=== PATIENT | female | born 1985 | race Caucasian/White ===

== ENCOUNTER 2017-04-27 17:06 | Emergency (ER) | payer OTHER ==
[2017-04-27 19:27] VITALS: BP 139/74
--- NOTE | 2017-04-27 19:58 | UC ---
Throat Pain/Nasal Krish HPI - HPI Summary HPI Summary: 32 female presents to with complaints of fever, sinus pain, nasal congestion , nausea and headache that began 3 days ago. Not currently nauseous. Patient tried taking OTC sinus medication without much relief. Fever was 101F yesterday. No other complaints. No other medications or PMHx. Denies sore throat, cough and ear pain. No chest pain or difficulty breathing. - History of Current Complaint Chief Complaint: UCGeneralIllness Stated Complaint: SINUS Time Seen by Provider: 04/27/17 19:35 Hx Obtained From: Patient Hx Last Menstrual Period: 04/19/17 Onset/Duration: Sudden Onset, Lasting Days, Still Present, Worse Since Severity: Moderate Pain Intensity: 2 Pain Scale Used: 0-10 Numeric Cough: Sputum Appears Associated Signs & Symptoms: Positive: Sinus Discomfort, Nasal Discharge - Allergies/Home Medications Allergies/Adverse Reactions: Allergies Allergy/AdvReac Type Severity Reaction Status Date / Time Amoxicillin Allergy Rash Verified 04/27/17 19:27 Penicillins Allergy Rash Verified 04/27/17 19:27 Prochlorperazine Allergy Agitation Verified 04/27/17 19:27 [From Compazine] PMH/Surg Hx/FS Hx/Imm Hx - Additional Past Medical History Additional PMH: Denies DM, HTN and asthma Gets sinusitis often - Surgical History Surgical History: Yes Surgery Procedure, Year, and Place: tonsils 1995, cholecystectomy 02/2012, right parotidectomy 06/2014, both tubes removed,. 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 - Social History Alcohol Use: None Substance Use Type: None Smoking Status (MU): Former Smoker Review of Systems Constitutional: Fever, Chills, Fatigue Skin: Negative Eyes: Negative ENT: Nasal Discharge, Sinus Congestion, Sinus Pain/Tenderness Respiratory: Negative Cardiovascular: Negative Gastrointestinal: Nausea Neurological: Headache All Other Systems Reviewed And Are Negative: Yes Physical Exam Triage Information Reviewed: Yes Appearance: Well-Appearing, No Pain Distress, Well-Nourished Vital Signs: Initial Vital Signs Temp 98.2 F 04/27/17 19:24 Pulse 112 04/27/17 19:24 Resp 18 04/27/17 19:24 BP 139/74 04/27/17 19:24 Pulse Ox 98 04/27/17 19:24 Vital Signs Reviewed: Yes Eyes: Positive: Conjunctiva Clear ENT: Positive: Normal ENT inspection, Hearing grossly normal, Pharynx normal, TMs normal. Negative: Tonsillar swelling, Tonsillar exudate, Trismus, Muffled/ hoarse voice Dental: Positive: Percussion Tenderness @ - maxillary b/l, Cervical Lymphadenopathy Neck: Positive: Supple, Nontender Respiratory: Positive: Chest non-tender, Lungs clear, Normal breath sounds, No respiratory distress, No accessory muscle use Cardiovascular: Positive: RRR, No Murmur, Pulses Normal Abdomen Description: Positive: Nontender, Soft Bowel Sounds: Positive: Present Musculoskeletal: Positive: Strength Intact, ROM Intact Neurological: Positive: Alert Skin Exam: Normal Throat Pain/Nasal Course/Dx - Course Course Of Treatment: appears to be suffering from sinusitis. will treat with flonase and antibiotic. fluids, rest, ibuprofen. saline rinses, hot showers and warm compresses. sleep with extra pillow. follow up. aware of worsening signs and symptoms to watch out for. - Differential Dx/Diagnosis Differential Diagnosis/HQI/PQRI: Pharyngitis, Sinusitis, Tonsillitis, URI Provider Diagnoses: acute sinusitis Discharge - Discharge Plan Condition: Stable Disposition: HOME Prescriptions: Cefdinir [Cefdinir 300 MG CAP] 300 mg PO BID #20 cap Fluticasone NASAL SPRAY 50MCG* [Flonase NASAL SPRAY 50MCG*] 2 spray BOTH NARES DAILY #1 btl Loratadine [Claritin 10 MG CAP] 10 mg PO DAILY #10 cap Patient Education Materials: Sinusitis (ED), Warm Compress or Soak (ED) Referrals: Lori Starr MD [Primary Care Provider] - Additional Instructions: Take antihistamine and start using flonase. Take prescribed antibiotic until entire dose is finished. Probiotic or maltese yogurt in between doses. Fluids, rest. Warm compresses over cheeks. Saline rinses, hot showers. sleep with extra pillow. Follow up pcp. Return if symptoms worsen or do not improve.
== END 2017-04-27 20:18 | disposition home or self-care (01) ==
LOC: UCCORT 17:06
DX: J01.90 Acute sinusitis, unspecified (principal); Z90.49 Acquired absence of other specified parts of digestive tract; Z90.3 Acquired absence of stomach [part of]; Z88.0 Allergy status to penicillin; Z87.891 Personal history of nicotine dependence
CPT/HCPCS: 99212; G0463

== ENCOUNTER 2017-09-04 10:59 | Emergency (ER) | payer OTHER ==
[2017-09-04 13:22] VITALS: BP 123/69
--- NOTE | 2017-09-04 13:57 | UC ---
Ear Complaint HPI - HPI Summary HPI Summary: Rony ear congestion and pressure for a day or so. She has had URi symptoms along with her family. Non fever or actual pain. - History of Current Complaint Chief Complaint: UCEar Stated Complaint: ear ache Time Seen by Provider: 09/04/17 12:58 Hx Obtained From: Patient Hx Last Menstrual Period: last month Onset/Duration: Gradual Onset, Lasting Days Severity Initially: Mild Severity Currently: Mild Pain Intensity: 0 Aggravating Factors: Nothing Alleviating Factors: Nothing Associated Signs/Symptoms: Positive: URI Symptoms. Negative: Discharge, Hearing Loss, Foreign Body Sensation, Trauma to Ear, Swelling @ - Allergies/Home Medications Allergies/Adverse Reactions: Allergies Allergy/AdvReac Type Severity Reaction Status Date / Time Amoxicillin Allergy Rash Verified 09/04/17 13:22 Penicillins Allergy Rash Verified 09/04/17 13:22 Prochlorperazine Allergy Agitation Verified 09/04/17 13:22 [From Compazine] Home Medications: Home Medications NK [No Home Medications Reported] 09/04/17 [History Confirmed 09/04/17] PMH/Surg Hx/FS Hx/Imm Hx Previously Healthy: No - Surgical History Surgical History: Yes Surgery Procedure, Year, and Place: tonsils 1995, cholecystectomy 02/2012, right parotidectomy 06/2014, both tubes removed,. 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 - Social History Lives: With Family Alcohol Use: None Substance Use Type: None Smoking Status (MU): Former Smoker Review of Systems ENT: Ear Ache All Other Systems Reviewed And Are Negative: Yes Physical Exam Triage Information Reviewed: Yes Appearance: Well-Appearing, No Pain Distress, Obese Vital Signs: Initial Vital Signs Temp 99.7 F 09/04/17 13:18 Pulse 68 09/04/17 13:18 Resp 18 09/04/17 13:18 BP 123/69 09/04/17 13:18 Pulse Ox 100 09/04/17 13:18 Vital Signs Reviewed: Yes Eye Exam: Normal Eyes: Positive: Conjunctiva Clear ENT: Positive: Normal ENT inspection, Pharynx normal, Nasal congestion, TM bulging, Uvula midline. Negative: Pharyngeal erythema, TM dull, TM red, Tonsillar swelling, Tonsillar exudate, Trismus, Muffled voice, Sinus tenderness Neck: Positive: Supple, Nontender, No Lymphadenopathy Respiratory: Positive: Lungs clear, Normal breath sounds, No respiratory distress, No accessory muscle use. Negative: Respiratory distress, Decreased breath sounds, Accessory muscle use, Crackles, Rhonchi, Stridor, Wheezing Cardiovascular: Positive: RRR, No Murmur, Pulses Normal Abdomen Description: Positive: Soft. Negative: CVA Tenderness (R), CVA Tenderness (L), Distended, Guarding Musculoskeletal: Positive: ROM Intact, No Edema Neurological: Positive: Alert, Muscle Tone Normal Psychological: Positive: Age Appropriate Behavior Skin: Negative: rashes Ear Complaint Course/Dx - Course Course Of Treatment: decongestants. - Differential Dx/Diagnosis Provider Diagnoses: URI. Rnoy ear pressure without infection. Discharge - Discharge Plan Condition: Good Disposition: HOME Patient Education Materials: Upper Respiratory Infection (ED) Referrals: Lori Starr MD [Primary Care Provider] - Additional Instructions: OTC decongestants.
== END 2017-09-04 13:57 | disposition home or self-care (01) ==
LOC: UCCORT 10:59
DX: J06.9 Acute upper respiratory infection, unspecified (principal); H93.8X3 Other specified disorders of ear, bilateral; E66.9 Obesity, unspecified; Z90.49 Acquired absence of other specified parts of digestive tract; Z98.84 Bariatric surgery status; Z88.1 Allergy status to other antibiotic agents; Z88.0 Allergy status to penicillin; Z87.891 Personal history of nicotine dependence
CPT/HCPCS: 99211; G0463

== ENCOUNTER 2017-11-11 13:50 | Emergency (ER) | payer OTHER ==
[2017-11-11 15:29] VITALS: BP 125/72
--- NOTE | 2017-11-11 15:56 | UC ---
Ear Complaint HPI - HPI Summary HPI Summary: Pt presents with sore throat and left ear pain that began 4 days ago. Her children have been sick with similar symptoms. She has not been taking anything OTC for her symptoms. Denies fever, chills, SOB, chest pain, abdominal pain, n/v /d/c. - History of Current Complaint Chief Complaint: UCRespiratory Stated Complaint: EAR PAIN,SORE THROAT Time Seen by Provider: 11/11/17 15:18 Hx Obtained From: Patient Hx Last Menstrual Period: salpengectomy Onset/Duration: Gradual Onset Severity Initially: Mild Severity Currently: Mild Pain Intensity: 3 Pain Scale Used: 0-10 Numeric - Allergies/Home Medications Allergies/Adverse Reactions: Allergies Allergy/AdvReac Type Severity Reaction Status Date / Time amoxicillin Allergy Rash Verified 11/11/17 15:29 Penicillins Allergy Rash Verified 11/11/17 15:29 prochlorperazine Allergy Agitation Verified 11/11/17 15:29 [From Compazine] Home Medications: Home Medications Topiramate [Topamax] 100 mg PO BID 11/11/17 [History Confirmed 11/11/17] PMH/Surg Hx/FS Hx/Imm Hx Previously Healthy: Yes - Surgical History Surgical History: Yes Surgery Procedure, Year, and Place: tonsils 1995, cholecystectomy 02/2012, right parotidectomy 06/2014, both tubes removed,. 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 - Social History Occupation: Employed Full-time Lives: With Family Alcohol Use: None Substance Use Type: None Smoking Status (MU): Former Smoker Review of Systems Constitutional: Negative Skin: Negative Eyes: Negative ENT: Sore Throat, Ear Ache Respiratory: Negative Cardiovascular: Negative Gastrointestinal: Negative Neurovascular: Negative Musculoskeletal: Negative Neurological: Negative Psychological: Negative All Other Systems Reviewed And Are Negative: Yes Physical Exam - Summary Physical Exam Summary: GENERAL: NAD. WDWN. No pain distress. SKIN: No rashes, sores, ulcers, masses, lesions. HEENT: Head: AT/NC Eyes: Conjunctiva clear without inflammation or discharge. Ears: Hearing grossly normal. Left TM with mild erythema and bulging. No discharge or edema. Nose: Nasal mucosa pink and moist. NTTP maxillary and frontal sinus. Throat: Posterior oropharynx without exudates, erythema, or tonsillar enlargement. Uvula midline. NECK: Supple. Nontender. No lymphadenopathy. CHEST: CTAB. No r/r/w. No accessory muscle use. Breathing comfortably and in no distress. CV: RRR. Without m/r/g. Pulses intact. Brisk cap refill. NEURO: Alert. CN II-XII grossly intact. PSYCH: Age appropriate behavior. Triage Information Reviewed: Yes Vital Signs: Initial Vital Signs Temp 98.6 F 11/11/17 15:26 Pulse 81 11/11/17 15:26 Resp 18 11/11/17 15:26 BP 125/72 11/11/17 15:26 Pulse Ox 99 11/11/17 15:26 Ear Complaint Course/Dx - Course Course Of Treatment: Left otitis media - Differential Dx/Diagnosis Provider Diagnoses: Left otitis media Discharge - Sign-Out/Discharge Documenting (check all that apply): Discharge - Discharge Plan Condition: Stable Disposition: HOME Prescriptions: Azithromycin TAB* [Zithromax TAB (Z-ELIZABETH) 250 mg #6 tabs] 2 tab PO .TODAY, THEN 1 DAILY #1 elizabeth Patient Education Materials: Ear Infection (ED) Referrals: Lori Starr MD [Primary Care Provider] - Additional Instructions: If you develop a fever, shortness of breath, chest pain, new or worsening symptoms - please call your PCP or go to the ED. - Billing Disposition and Condition Condition: STABLE Disposition: HOME
== END 2017-11-11 16:10 | disposition home or self-care (01) ==
LOC: UCCORT 13:50
DX: H66.92 Otitis media, unspecified, left ear (principal); Z88.0 Allergy status to penicillin; Z88.8 Allergy status to other drugs, medicaments and biological substances; Z87.891 Personal history of nicotine dependence
CPT/HCPCS: 99212; G0463

== ENCOUNTER 2017-11-16 18:31 | Emergency (ER) | payer OTHER ==
[2017-11-16 19:46] VITALS: BP 133/69
--- NOTE | 2017-11-16 20:27 | UC ---
Throat Pain/Nasal Krish HPI - HPI Summary HPI Summary: Pt here with progressive left ear pain and left sinus pain. pt was treated with z pack for left OM with little improvement. No fever, chills. No rash. mild frontal CESAR. no nausea, vomitig. Mild sore throat. OTC meds pt's medications reviewed this visit - History of Current Complaint Chief Complaint: UCEar Stated Complaint: LEFT EAR PAIN, RESPIRATORY Time Seen by Provider: 11/16/17 20:14 Hx Obtained From: Patient, Medical Records Hx Last Menstrual Period: 10/23/ ?: No Onset/Duration: Gradual Onset, Lasting Days Pain Intensity: 8 - Allergies/Home Medications Allergies/Adverse Reactions: Allergies Allergy/AdvReac Type Severity Reaction Status Date / Time amoxicillin Allergy Rash Verified 11/16/17 19:46 Penicillins Allergy Rash Verified 11/16/17 19:46 prochlorperazine Allergy Agitation Verified 11/16/17 19:46 [From Compazine] PMH/Surg Hx/FS Hx/Imm Hx Previously Healthy: Yes - Surgical History Surgical History: Yes Surgery Procedure, Year, and Place: tonsils 1995, cholecystectomy 02/2012, right parotidectomy 06/2014, both tubes removed,. 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 - Social History Occupation: Employed Full-time Lives: With Family Alcohol Use: None Substance Use Type: None Smoking Status (MU): Former Smoker Review of Systems Constitutional: Negative Eyes: Negative ENT: Sore Throat, Ear Ache, Sinus Congestion, Sinus Pain/Tenderness All Other Systems Reviewed And Are Negative: Yes Physical Exam Triage Information Reviewed: Yes Appearance: Well-Appearing, No Pain Distress, Well-Nourished Vital Signs: Initial Vital Signs Temp 98.5 F 11/16/17 19:41 Pulse 78 11/16/17 19:41 Resp 18 11/16/17 19:41 BP 133/69 11/16/17 19:41 Pulse Ox 100 11/16/17 19:41 Vital Signs Reviewed: Yes Eye Exam: Normal Eyes: Positive: Conjunctiva Clear ENT Exam: Normal ENT: Positive: Normal ENT inspection, Hearing grossly normal, Nasal congestion, Sinus tenderness, Other - left TM ++ fluid, retracte turbinate inflammed + TTP left max sinus + pnd uvula midline. Negative: Tonsillar swelling, Tonsillar exudate, Uvula midline Dental Exam: Normal Neck exam: Normal Neck: Positive: Supple, Nontender, No Lymphadenopathy Respiratory Exam: Normal Respiratory: Positive: Chest non-tender, Lungs clear, Normal breath sounds, No respiratory distress, No accessory muscle use Cardiovascular Exam: Normal Cardiovascular: Positive: RRR, No Murmur Abdominal Exam: Normal Abdomen Description: Positive: Nontender, No Organomegaly Musculoskeletal Exam: Normal Neurological Exam: Normal Neurological: Positive: Alert Throat Pain/Nasal Course/Dx - Course Course Of Treatment: pt with persistent left ear pain s/p z pack for om. Pt with continued infection on exam, now left max sinus. d/w pt at length -. pt previously taken omnicef. Will Rx omnicef, flonase. decongestant. hydrate. secretion precaution - Differential Dx/Diagnosis Provider Diagnoses: left OM. sinusitis Discharge - Sign-Out/Discharge Documenting (check all that apply): Discharge - Discharge Plan Condition: Stable Disposition: HOME Prescriptions: Cefdinir [Cefdinir 300 MG CAP] 300 mg PO BID #20 capsule Cetirizine HCl/Pseudoephedrine [Zyrtec-D Tablet] 1 each PO QAM #14 tab.er.12h Patient Education Materials: Otitis Externa (ED) Referrals: Lori Starr MD [Primary Care Provider] - Additional Instructions: - Stay well hydrated. Drink plenty of non-alcoholic, non-caffinated beverages. - Alternate ibuprofen (Advil, Motrin) 600mg and Tylenol every 3 hours for pain or fever. Take with food. Do NOT take for more than 4-5 days. - These infections are spread by secretions - do NOT share eating or drinking utensils - clean items you share with other people such as cell phones, computer mouse, TV remote, computer tablets,etc. Once you have been on antibiotics for 2 days, change your toothbrush and your pillowcase. - get plenty of restful sleep - humidify the air in the room where you sleep - boil water, run a hot steam shower, vaporizer, cups of water by heat register - okay to take over the counter decongestant and cough medication - because this is your second antibiotic in 2 weeks - it is recommended you eat yogurt every day you take antibiotics or take pro-biotics on medications to prevent diarrhea. - contact your doctor or return with questions or concerns - Billing Disposition and Condition Condition: STABLE Disposition: HOME
== END 2017-11-16 20:38 | disposition home or self-care (01) ==
LOC: UCCORT 18:31
DX: H66.92 Otitis media, unspecified, left ear (principal); J32.9 Chronic sinusitis, unspecified; Z87.891 Personal history of nicotine dependence; Z88.3 Allergy status to other anti-infective agents; Z88.8 Allergy status to other drugs, medicaments and biological substances
CPT/HCPCS: 99212; G0463

== ENCOUNTER 2018-06-17 15:21 | Emergency (ER) | payer OTHER ==
[2018-06-17 16:23] VITALS: BP 127/62
--- NOTE | 2018-06-17 17:19 | UC ---
Throat Pain/Nasal Krish HPI - HPI Summary HPI Summary: Pt presents with c/o nasal congestion, sinus pressure, CESAR, nausea X 1 week. - History of Current Complaint Chief Complaint: UCGeneralIllness Stated Complaint: HEADACHE/NAUSEA/SINUS Time Seen by Provider: 06/17/18 16:37 Hx Obtained From: Patient Hx Last Menstrual Period: 10/23/ ?: No Onset/Duration: Gradual Onset, Lasting Days, Still Present Severity: Moderate Pain Intensity: 7 Pain Scale Used: 0-10 Numeric Associated Signs & Symptoms: Positive: Sinus Discomfort - Epiglottits Risk Factors Epiglottis Risk Factors: Negative - Allergies/Home Medications Allergies/Adverse Reactions: Allergies Allergy/AdvReac Type Severity Reaction Status Date / Time amoxicillin Allergy Rash Verified 11/16/17 19:46 Penicillins Allergy Rash Verified 11/16/17 19:46 prochlorperazine Allergy Agitation Verified 11/16/17 19:46 [From Compazine] PMH/Surg Hx/FS Hx/Imm Hx Previously Healthy: Yes - Surgical History Surgical History: Yes Surgery Procedure, Year, and Place: tonsils 1995, cholecystectomy 02/2012, right parotidectomy 06/2014, both tubes removed,. 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 - Social History Occupation: Employed Full-time, Works From/At Home Lives: With Family Alcohol Use: None Substance Use Type: None Smoking Status (MU): Former Smoker Have You Smoked in the Last Year: No Household Exposure Type: Cigarettes Review of Systems All Other Systems Reviewed And Are Negative: Yes Constitutional: Positive: Fatigue Skin: Positive: Negative Eyes: Positive: Negative ENT: Positive: Sinus Congestion, Sinus Pain/Tenderness Respiratory: Positive: Negative Cardiovascular: Positive: Negative Gastrointestinal: Positive: Nausea Genitourinary: Positive: Negative Motor: Positive: Negative Neurovascular: Positive: Negative Musculoskeletal: Positive: Negative Neurological: Positive: Headache Psychological: Positive: Negative Is Patient Immunocompromised?: No Physical Exam Triage Information Reviewed: Yes Appearance: Well-Appearing Vital Signs: Initial Vital Signs Temp 98 F 06/17/18 16:19 Pulse 62 06/17/18 16:19 Resp 16 06/17/18 16:19 BP 127/62 06/17/18 16:19 Pulse Ox 100 06/17/18 16:19 Vital Signs Reviewed: Yes Eye Exam: Normal ENT: Positive: Nasal congestion, Sinus tenderness Dental Exam: Normal Neck exam: Normal Respiratory Exam: Normal Cardiovascular Exam: Normal Musculoskeletal Exam: Normal Neurological Exam: Normal Psychological Exam: Normal Skin Exam: Normal Throat Pain/Nasal Course/Dx - Differential Dx/Diagnosis Differential Diagnosis/HQI/PQRI: Sinusitis, URI Provider Diagnoses: sinusitis Discharge - Sign-Out/Discharge Documenting (check all that apply): Patient Departure All imaging exams completed and their final reports reviewed: No Studies - Discharge Plan Condition: Stable Disposition: HOME Prescriptions: Azithromycin TAB* [Zithromax TAB (Z-ELIZABETH) 250 mg #6 tabs] 2 tab PO .TODAY, THEN 1 DAILY #1 elizabeth Guaifenesin/Pseudoephedrne HCl [Mucinex D ER 600-60 mg Tablet] 1 each PO Q12H # 14 tab.er.12h Patient Education Materials: Sinusitis (ED) Referrals: [facility] [Outside] - If Needed Lori Starr MD [Primary Care Provider] - - Billing Disposition and Condition Condition: STABLE Disposition: Home
== END 2018-06-17 17:10 | disposition home or self-care (01) ==
LOC: UCCORT 15:21
DX: J32.9 Chronic sinusitis, unspecified (principal); Z88.0 Allergy status to penicillin; Z88.1 Allergy status to other antibiotic agents; Z88.8 Allergy status to other drugs, medicaments and biological substances; Z87.891 Personal history of nicotine dependence
CPT/HCPCS: 99212; G0463

== ENCOUNTER 2018-08-07 17:15 | Emergency (ER) | payer OTHER ==
[2018-08-07 18:26] VITALS: BP 134/65
--- NOTE | 2018-08-07 18:57 | UC ---
Throat Pain/Nasal Krish HPI - HPI Summary HPI Summary: Pt c/o sudden onset of nasal congestion sinus pressure, pain, X 5 days.Pt was seen at [facility] ER 08/03/18 and diagnosed with viral infection. Pt states she thinks she has a sinus infection. - History of Current Complaint Chief Complaint: UCRespiratory Stated Complaint: SINUS/EARS/SORE THROAT Time Seen by Provider: 08/07/18 18:18 Hx Obtained From: Patient Hx Last Menstrual Period: 07/29/18 ?: No Onset/Duration: Sudden Onset, Lasting Days, Still Present Severity: Severe Pain Intensity: 8 Cough: None Associated Signs & Symptoms: Positive: Sinus Discomfort, Fever - Epiglottits Risk Factors Epiglottis Risk Factors: Negative - Allergies/Home Medications Allergies/Adverse Reactions: Allergies Allergy/AdvReac Type Severity Reaction Status Date / Time amoxicillin Allergy Rash Verified 08/07/18 18:19 Penicillins Allergy Rash Verified 08/07/18 18:19 prochlorperazine Allergy Agitation Verified 08/07/18 18:19 [From Compazine] Home Medications: Home Medications Ibuprofen TAB* [Advil TAB*] 200 mg PO Q6H PRN 08/07/18 [History Confirmed ] Otc Sinus Med PRN 08/07/18 [History] busPIRone TAB* [Buspar TAB*] 10 mg PO TID PRN 08/07/18 [History Confirmed ] PMH/Surg Hx/FS Hx/Imm Hx Previously Healthy: Yes - Surgical History Surgical History: Yes Surgery Procedure, Year, and Place: tonsils 1995, cholecystectomy 02/2012, right parotidectomy 06/2014, both tubes removed,. 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 - Social History Occupation: Employed Full-time Lives: With Family Alcohol Use: None Substance Use Type: None Smoking Status (MU): Former Smoker Have You Smoked in the Last Year: No Household Exposure Type: Cigarettes Review of Systems All Other Systems Reviewed And Are Negative: Yes Constitutional: Positive: Chills, Fatigue Skin: Positive: Negative Eyes: Positive: Negative ENT: Positive: Sore Throat, Ear Ache, Sinus Congestion, Sinus Pain/Tenderness Respiratory: Positive: Cough Cardiovascular: Positive: Negative Gastrointestinal: Positive: Negative Genitourinary: Positive: Negative Motor: Positive: Negative Neurovascular: Positive: Negative Musculoskeletal: Positive: Myalgia Neurological: Positive: Headache Psychological: Positive: Negative Is Patient Immunocompromised?: No Physical Exam Triage Information Reviewed: Yes Appearance: Ill-Appearing Vital Signs: Initial Vital Signs Temp 99.1 F 08/07/18 18:22 Pulse 81 08/07/18 18:22 Resp 18 08/07/18 18:22 BP 134/65 08/07/18 18:22 Pulse Ox 99 08/07/18 18:22 Vital Signs Reviewed: Yes Eye Exam: Normal ENT: Positive: Nasal congestion, Sinus tenderness Dental Exam: Normal Neck exam: Normal Respiratory Exam: Normal Cardiovascular Exam: Normal Musculoskeletal Exam: Normal Neurological Exam: Normal Psychological Exam: Normal Skin Exam: Normal Throat Pain/Nasal Course/Dx - Differential Dx/Diagnosis Differential Diagnosis/HQI/PQRI: Pharyngitis, Sinusitis, URI Provider Diagnosis: Sinusitis Discharge - Sign-Out/Discharge Documenting (check all that apply): Patient Departure All imaging exams completed and their final reports reviewed: No Studies - Discharge Plan Condition: Stable Disposition: HOME Prescriptions: Azithromycin TAB* [Zithromax TAB (Z-ELIZABETH) 250 mg #6 tabs] 2 tab PO .TODAY, THEN 1 DAILY #1 elizabeth Patient Education Materials: Sinusitis (ED) Referrals: [facility] [Outside] - If Needed No Primary Care Phys,NOPCP [Primary Care Provider] - - Billing Disposition and Condition Condition: STABLE Disposition: Home
== END 2018-08-07 19:03 | disposition home or self-care (01) ==
LOC: UCCORT 17:15
DX: J32.9 Chronic sinusitis, unspecified (principal); Z87.891 Personal history of nicotine dependence; Z88.0 Allergy status to penicillin; Z88.8 Allergy status to other drugs, medicaments and biological substances
CPT/HCPCS: 99212; G0463